=== PATIENT | female | born 1975 | race Caucasian/White ===

== ENCOUNTER 2020-10-12 06:50 | Emergency (ER) | payer OTHER ==
[~2020-10-12] VITALS: Ht 170.2 cm; Wt 79.4 kg
[2020-10-12] MEDS ORDERED: CEPH500 PO (07:14)
[2020-10-12] MEDS ORDERED: Bactrim Ds Tab1 EACH PO (07:14)
== END 2020-10-12 07:21 | disposition home or self-care (01) ==
LOC: ER 06:50
DX: L08.9 Local infection of the skin and subcutaneous tissue, unspecified (principal); Z87.891 Personal history of nicotine dependence
CPT/HCPCS: 99283; A9270

== ENCOUNTER → 2021-04-24 | Outpatient (CLI) | payer OTHER ==
[~2021-04-24] MED LIST: Bactrim Ds Tab1 EACH PO; CEPH500 PO
[2021-04-29 21:10] LABS: CHLAMYDIA BY NAA Negative (Negative); GONOCOCCUS BY NAA Negative (Negative); HPV 16 Negative (Negative); HPV 18 Negative (Negative); HPV OTHER HR TYPES Negative (Negative); TRICH VAG BY NAA Negative (Negative)
== END ==
LOC: LAB 15:00 → LAB SHORT 15:00
PROVIDERS: Nurse Practitioner Family
DX: Z01.419 Encounter for gynecological examination (general) (routine) without abnormal findings (principal)
CPT/HCPCS: 87491; 87591; 87624; 87661; G0123

== ENCOUNTER 2023-02-25 08:12 | Day surgery (SDC) | payer OTHER ==
[~2023-02-25] VITALS: Ht 172.7 cm; Wt 97.7 kg
[2023-02-25] MEDS ORDERED: CELE200 (08:47)
[2023-02-25] MEDS ORDERED: Norco 10-325 T1 EACH (08:47)
[2023-02-25] MEDS ORDERED: GABA400 (08:47)
[2023-02-25] MEDS ORDERED: TIZA4 (08:48)
[2023-02-25 15:13] VITALS: BP 119/86
== END 2023-02-25 11:09 | disposition home or self-care (01) ==
LOC: ORSCSDS 08:12
PROVIDERS: Internal Medicine Gastroenterology
PROC: 0DBL8ZX Excision of Transverse Colon, Via Natural or Artificial Opening Endoscopic, Diagnostic (ICD-10-PCS; principal; 2023-02-25 09:30)
PROC: 0DBK8ZX Excision of Ascending Colon, Via Natural or Artificial Opening Endoscopic, Diagnostic (ICD-10-PCS; principal; 2023-02-25 09:30)
PROC: 0DBN8ZX Excision of Sigmoid Colon, Via Natural or Artificial Opening Endoscopic, Diagnostic (ICD-10-PCS; principal; 2023-02-25 09:30)
DX: K62.5 Hemorrhage of anus and rectum (principal); K59.00 Constipation, unspecified; D12.3 Benign neoplasm of transverse colon; D12.2 Benign neoplasm of ascending colon; K63.5 Polyp of colon; K64.8 Other hemorrhoids; K57.30 Diverticulosis of large intestine without perforation or abscess without bleeding; Z87.891 Personal history of nicotine dependence; Z79.899 Other long term (current) drug therapy
CPT/HCPCS: 88305; J2704; J7120

== ENCOUNTER 2023-05-04 09:57 | Emergency (ER) | payer OTHER ==
[~2023-05-04] VITALS: Ht 172.7 cm; Wt 101.2 kg
[~2023-05-04 09:57] MED LIST changes: +CELE200; +GABA400; +Norco 10-325 T1 EACH; +TIZA4
[2023-05-04 10:04] VITALS: BP 151/90
[2023-05-04 10:30] LABS: BASOPHILS ABSOLUTE AUTO 0.05 K/mm3 (0.00-0.23); BASOPHILS PERCENT AUTO 1 % (0-2); EOSINOPHILS PERCENT AUTO 5 % (0-6); Hematocrit 43.3 % (33.0-51.0); Hemoglobin 14.6 g/dL (11.5-16.0); IMMATURE GRAN ABSOLUTE AUTO 0.03 K/mm3 (0.00-0.10); IMMATURE GRAN PERCENT AUTO 1 % (0-1); LYMPHOCYTES ABSOLUTE AUTO 2.72 K/mm3 (0.84-5.20); LYMPHOCYTES PERCENT AUTO 42 % (21-46); MONOCYTES ABSOLUTE AUTO 0.38 K/mm3 (0.16-1.47); MONOCYTES PERCENT AUTO 6 % (4-13); Mean Corpuscular HGB 31.6 pg (26.0-34.0); Mean Corpuscular HGB Conc 33.7 g/dL (31.5-36.5); Mean Corpuscular Volume 94 fL (80-100); NEUTROPHILS ABSOLUTE AUTO 3.05 K/mm3 (1.96-9.15); NEUTROPHILS PERCENT AUTO 47 % (41-73); Platelet Count 181 K/mm3 (150-400); RDW Coefficient Variation 13.9 % (11.7-14.2); RDW Standard Deviation 47.3 fL (35.1-46.3); Red Blood Cell Count 4.62 M/mm3 (3.80-5.20); White Blood Cell Count 6.53 K/mm3 (4.00-11.30)
[2023-05-04 10:58] LABS: Alanine Aminotransfer (ALT/SGP 26 U/L (12-78); Albumin, Blood 4.1 g/dL (3.4-5.0); Alk Phos 88 U/L (50-136); Anion Gap 5 mmol/L (6-16); Aspartate Aminotrans (AST/SGOT 19 U/L (12-37); Beta HCG, Quantitative, Serum <1 mIU/mL (0-3); Bilirubin, Total 0.2 mg/dL (0.1-1.0); Blood Urea Nitrogen 13 mg/dL (8-24); Bun/Creatinine Ratio 14.4 (12.0-20.0); CO2, Blood 26 mmol/L (21-32); Calcium, Blood 8.6 mg/dL (8.5-10.1); Chloride, Blood 107 mmol/L (98-108); Creatinine, Blood 0.91 mg/dL (0.40-1.00); Globulin, Blood 4.1 g/dL (2.2-4.0); Glomerular Filtration Rate 78 (60-); Glucose, Blood 113 mg/dL (70-99); Potassium, Blood 3.6 mmol/L (3.5-5.5); Sodium, Blood 138 mmol/L (136-145); Total Protein, Blood 8.2 g/dL (6.4-8.2)
[2023-05-04 11:05] LABS: Source, Urine Clean Catch
[2023-05-04 11:10] LABS: Appearance, Urine Clear (Clear); Bilirubin, Urine Neg (Neg); Blood, Urine 3+ (Neg); Glucose Qualitative, Urine Neg (Neg); Ketones, Urine Neg (Neg); Leukocyte Esterase, Urine Neg (Neg); Nitrite, Urine Neg (Neg); Protein, Urine Neg (Neg); Urobilinogen, Urine NORM (Normal)
[2023-05-04 11:18] LABS: Color, Urine Pale Yellow (P-Yellow)
[2023-05-04 11:19] LABS: Bacteria Not Seen /hpf; Squamous Epithelial Cells Few /hpf (Few); White Blood Cells, Urine Not Seen /hpf (0-5)
== END 2023-05-04 11:47 | disposition home or self-care (01) ==
LOC: ER 09:57
PROVIDERS: Physician Assistant
DX: R10.9 Unspecified abdominal pain (principal); Z87.891 Personal history of nicotine dependence
CPT/HCPCS: 80053; 81001; 84702; 85025; 86900; 86901; 99284

== ENCOUNTER 2024-08-30 08:47 | Day surgery (SDC) | payer OTHER ==
[~2024-08-30] VITALS: Ht 172.7 cm; Wt 92.5 kg
[2024-08-30] MEDS ORDERED: OXYC5 (09:28)
[2024-08-30] MEDS ORDERED: Vitamin D1000 UNI1 (09:28)
[2024-08-30] MEDS ORDERED: ONDA4ODT (09:28)
[2024-08-30] MEDS ORDERED: MERIBIN5 MG (09:28)
[2024-08-30] MEDS ORDERED: Lactated Ringer's 1,000 ML IV ONE ×2 (10:07→10:19)
[2024-08-30] MEDS ORDERED: propofoL 50 ML IV ONE (10:18)
[2024-08-30 11:41] VITALS: BP 111/68
== END 2024-08-30 11:32 | disposition home or self-care (01) ==
LOC: ORSCSDS 08:47
PROVIDERS: Internal Medicine Gastroenterology
PROC: 0DJD8ZZ Inspection of Lower Intestinal Tract, Via Natural or Artificial Opening Endoscopic (ICD-10-PCS; principal; 2024-08-30 10:15)
DX: K64.8 Other hemorrhoids (principal); Z79.899 Other long term (current) drug therapy; Z86.0101 Personal history of adenomatous and serrated colon polyps; Z87.891 Personal history of nicotine dependence
CPT/HCPCS: J2704; J7120